=== PATIENT | male | born 1995 | race Caucasian/White ===

== ENCOUNTER 2022-02-12 07:07 | Emergency (ER) | payer SELFPAY ==
[~2022-02-12] VITALS: Ht 175.3 cm; Wt 68.0 kg
[2022-02-12 07:12] VITALS: BP 119/67
[2022-02-12] MEDS ORDERED: IBUPROFEN 600 MG TABLET PO ONE (07:30)
[2022-02-12] MEDS ORDERED: IBUPROFEN 600 MG TABLET ONE (07:40)
== END 2022-02-12 07:46 | disposition home or self-care (01) ==
LOC: ER 07:12
DX: S83.92XA Sprain of unspecified site of left knee, initial encounter (principal); M54.50 Low back pain, unspecified; Z88.6 Allergy status to analgesic agent; Z60.2 Problems related to living alone; V49.69XA Unspecified car occupant injured in collision with other motor vehicles in traffic accident, initial encounter; Y93.89 Activity, other specified; Y92.413 State road as the place of occurrence of the external cause; Y99.8 Other external cause status
CPT/HCPCS: 73564-TC

== ENCOUNTER 2022-03-28 10:33 | Emergency (ER) | payer SELFPAY ==
[~2022-03-28] VITALS: Ht 175.3 cm; Wt 67.1 kg
--- NOTE | 2022-03-28 11:00 | NUR ---
TO ER BED 10. BIBS COMPLAINT OF NAUSEA/VOMITING THIS AM. A/O X4, AMBULATORY W/ STEADY GAIT.
[2022-03-28] MEDS ORDERED: ONDANSETRON HCL/PF 4 MG/2 ML VIAL ONE (11:22)
[2022-03-28] MEDS ORDERED: FAMOTIDINE/PF INJ 20 MG/2 ML VIAL IV ONE (11:22)
[2022-03-28] MEDS: FAMOTIDINE/PF INJ 20 MG/2 ML VIAL IV ONE (11:39)
[2022-03-28] MEDS: IV NS 0.9% 1,000 ML BAG IV ONE (11:39)
[2022-03-28] MEDS: ONDANSETRON HCL/PF 4 MG/2 ML VIAL IVP ONE (11:39)
--- NOTE | 2022-03-28 11:40 | NUR ---
IV LINE ESTABLISHED ON RAC #[id number], BLOOD DRAWN AND SENT TO LAB.
[2022-03-28 11:41] LABS: BASOPHILS % (AUTO) 0.7 % (0.0-2.0); EOSINOPHILS % (AUTO) 0.5 % (0.0-6.0); HEMATOCRIT 43 % (39-51); LYMPHOCYTES # (AUTO) 0.9 K/uL (0.8-4.8); LYMPHOCYTES % (AUTO) 14.8 % (20.0-44.0); MEAN CORPUSCULAR HGB CONC 33 g/dl (31.0-36.0); MEAN CORPUSCULAR VOLUME 88 fL (80-96); MONOCYTES # (AUTO) 0.2 K/uL (0.1-1.30); MONOCYTES % (AUTO) 3.5 % (2.0-12.0); NEUTROPHILS # (AUTO) 5.1 K/uL (1.8-8.9); NEUTROPHILS % (AUTO) 80.5 % (43.0-81.0); PLATELET COUNT (AUTO) 217 K/uL (150-450); RED BLOOD CELL COUNT(AUTO) 4.87 MIL/uL (4.5-6.0); WHITE BLOOD COUNT (AUTO) 6.3 K/uL (4.3-11.0)
[2022-03-28 11:49] LABS: CALCIUM, SERUM 9.7 mg/dL (8.5-10.1)
[2022-03-28 11:56] LABS: BILIRUBIN,DIRECT 0.2 mg/dL (0.0-0.2); BILIRUBIN,TOTAL 0.8 mg/dL (0.2-1.0); TOTAL PROTEIN, SERUM 8.8 g/dL (6.4-8.2)
--- NOTE | 2022-03-28 12:48 | NUR ---
PO CHALLENGE DONE, ABLE TO DRINK 1 CUP OF WATER WITHOUT VOMITING. MADE MD AWARE
[2022-03-28] MEDS ORDERED: FAMO-131 PO (12:52)
[2022-03-28 13:02] VITALS: BP 131/78
--- NOTE | 2022-03-28 13:02 | NUR ---
IV removed. Catheter intact and site benign. Pressure and 4x4 applied to site. No bleeding noted.Patient discharged to home in stable condition. Written and verbal after care instructions given. Patient verbalizes understanding of instruction.
--- NOTE | 2022-03-28 13:08 | NUR ---
Patient discharged to home in stable condition. Written and verbal after care instructions given. Patient verbalizes understanding of instruction.
== END 2022-03-28 13:08 | disposition home or self-care (01) ==
LOC: ER 10:36
DX: R11.10 Vomiting, unspecified (principal); R10.10 Upper abdominal pain, unspecified; F10.99 Alcohol use, unspecified with unspecified alcohol-induced disorder; Z60.2 Problems related to living alone; Y90.9 Presence of alcohol in blood, level not specified
CPT/HCPCS: 36415; 80048; 80076; 85025; 96374; 96375; 99284; J2405; J3490; J7030